=== PATIENT | female | born 1965 | race Asian ===

== ENCOUNTER → 2017-07-15 | Outpatient (CLI) | payer OTHER ==
[~2017-07-15] MED LIST: ACTOS; IOHEXOL 300 MG/ML 100ML BOTTLE IJ ONE; LIDOCAINE 2% (LOCAL ANESTH.) PF 5ml SDV ONE; METFORMIN; SIMVPOW2
== END | disposition home or self-care (01) ==
LOC: XY 08:43
DX: M25.532 Pain in left wrist (principal); Z88.8 Allergy status to other drugs, medicaments and biological substances
CPT/HCPCS: 20605; 73201; 77002; Q9967